=== PATIENT | male | born 1970 ===

== ENCOUNTER 2020-12-27 10:22 | Emergency (ER) | payer OTHER ==
[2020-12-27] MEDS ORDERED: Sodium Chloride 0.9% 10 ML Syringe FLUSH PRN (10:28)
--- NOTE | 2020-12-27 10:29 | EDM.PDOC ---
ED HPI GENERAL MEDICAL PROBLEM - General Chief Complaint: Neuro Symptoms/Deficits Stated Complaint: syncope Time Seen by Provider: 12/27/20 10:29 Source of Information: Reports: Patient, EMS History Limitations: Reports: No Limitations - History of Present Illness INITIAL COMMENTS - FREE TEXT/NARRATIVE: patient presented to the ER with a c/o dizziness. He is from the [facility] home - reports that this happened to him several times in the past. underwent several cardiac workups - all negative no fever or chills reports drinking 3 glasses of whiskey yesterday. no h/o CAD no illicit drugs abuse. Denies any symptoms at the moment ED ROS GENERAL - Review of Systems Review Of Systems: See Below Constitutional: Reports: No Symptoms HEENT: Reports: No Symptoms Respiratory: Reports: No Symptoms Cardiovascular: Reports: No Symptoms GI/Abdominal: Reports: No Symptoms Skin: Reports: No Symptoms Neurological: Reports: Dizziness ED EXAM, NEURO - Physical Exam Exam: See Below Exam Limited By: No Limitations General Appearance: Alert, WD/WN, No Apparent Distress Eye Exam: Bilateral Eye: EOMI, PERRL Neck: Normal Inspection Respiratory/Chest: No Respiratory Distress Cardiovascular: Normal Peripheral Pulses GI/Abdominal: Normal Bowel Sounds Neurological: Alert, Normal Mood/Affect Psychiatric: Normal Affect #1 Interpretation EKG Date: 12/27/20 Rhythm: NSR Happy: Normal P-Wave: Present QRS: Normal ST-T: Normal QT: Normal Course - Orders/Labs/Meds Orders: Active Orders 24 hr Category Date Time Status EKG Documentation Completion [RC] ASDIRECTED Care 12/27/20 10:29 Active LORazepam [Ativan] Med 12/27/20 14:29 Once 1 mg PO ONETIME ONE Sodium Chloride 0.9% [Saline Flush] Med 12/27/20 10:28 Active 10 ml FLUSH ASDIRECTED PRN Saline Lock Insert [OM.PC] Routine Oth 12/27/20 10:28 Ordered EKG 12 Lead [EK] Routine Ther 12/27/20 10:28 Ordered Medication Orders Sodium Chloride (Sodium Chloride 0.9% 10 Ml Syringe) 10 ml FLUSH ASDIRECTED PRN PRN Reason: Keep Vein Open Labs: Laboratory Tests 12/27/20 12/27/20 Range/Units 10:45 10:45 WBC 5.4 (4.0-11.0) K/uL RBC 4.53 (4.50-6.50) M/uL Hgb 14.8 (13.0-18.0) g/dL Hct 43.1 (40.0-54.0) % MCV 95 (76-96) fL MCH 32.7 H (27.0-32.0) pg MCHC 34.3 (31.0-35.0) g/dL RDW 13.1 (11.0-16.0) % Plt Count 223 (150-400) K/uL MPV 8.6 (6.0-10.0) fL Sodium 134 L (136-145) mmol/L Potassium 3.9 (3.5-5.1) mmol/L Chloride 102 (98-107) mmol/L Carbon Dioxide 24.8 (21.0-32.0) mmol/L Anion Gap 11.1 (5.0-15.0) mmol/L BUN 6 L (8-26) mg/dL Creatinine 0.83 (0.70-1.30) mg/dL Est Cr Clr Drug Dosing TNP Estimated GFR (MDRD) > 60 (>60) MLS/MIN BUN/Creatinine Ratio 7.2 (6-25) Glucose 92 (74-100) mg/dL Calcium 8.4 L (8.5-10.1) mg/dL Phosphorus 2.5 (2.5-4.9) mg/dL Magnesium 1.9 (1.8-2.4) mg/dL Troponin I < 0.017 (0.000-0.060) ng/mL Meds: Medications Generic Name Dose Route Start Last Admin Trade Name Freq PRN Reason Stop Dose Admin Sodium Chloride 10 ml 12/27/20 10:28 Sodium Chloride 0.9% 10 Ml Syringe FLUSH ASDIRECTED PRN Keep Vein Open Discontinued Medications Generic Name Dose Route Start Last Admin Trade Name Freq PRN Reason Stop Dose Admin Al Hydroxide/Mg Hydroxide 30 ml 12/27/20 12:41 Gi Cocktail Oral Solution 30 Ml PO 12/27/20 12:42 ONETIME ONE Ondansetron HCl 4 mg 12/27/20 12:41 Ondansetron 4 Mg Tab.Dis PO 12/27/20 12:42 ONETIME ONE - Re-Assessments/Exams Free Text/Narrative Re-Assessment/Exam: vitals WNL EKG - NSR Labs including CBC, BMP and trop - WNL GI cocktail and Zofran were given for stomach upset - reports improvement in symptoms will d/c back - no changes in meds Departure - Departure Time of Disposition: 14:32 Disposition: Home, Self-Care 01 Condition: Good Clinical Impression: Palpitations - Discharge Information *PRESCRIPTION DRUG MONITORING PROGRAM REVIEWED*: Not Applicable *COPY OF PRESCRIPTION DRUG MONITORING REPORT IN PATIENT NAVEED: Not Applicable Forms: ED Department Discharge - Problem List & Annotations (1) Palpitations SNOMED Code(s): 43552383 Code(s): R00.2 - PALPITATIONS Status: Acute Priority: Low - Problem List Review Problem List Initiated/Reviewed/Updated: Yes - My Orders Last 24 Hours: My Active Orders 12/27/20 10:28 Sodium Chloride 0.9% [Saline Flush] 10 ml FLUSH ASDIRECTED PRN Saline Lock Insert [OM.PC] Routine EKG 12 Lead [EK] Routine 12/27/20 10:29 EKG Documentation Completion [RC] ASDIRECTED 12/27/20 14:29 LORazepam [Ativan] 1 mg PO ONETIME ONE - Assessment/Plan Last 24 Hours: My Active Orders 12/27/20 10:28 Sodium Chloride 0.9% [Saline Flush] 10 ml FLUSH ASDIRECTED PRN Saline Lock Insert [OM.PC] Routine EKG 12 Lead [EK] Routine 12/27/20 10:29 EKG Documentation Completion [RC] ASDIRECTED 12/27/20 14:29 LORazepam [Ativan] 1 mg PO ONETIME ONE Plan: - resume home meds as before - recommend to follow up with your PCP in 1-2 weeks - ask for a holter monitor - increase fluids intake
[2020-12-27] MEDS ORDERED: Ondansetron 4 MG Tab.DIS PO ONE (12:41)
[2020-12-27] MEDS ORDERED: GI Cocktail Oral Solution 30 ML PO ONE (12:41)
[2020-12-27] MEDS ORDERED: LORazepam 1 MG Tab PO ONE (14:29)
== END 2020-12-27 14:48 | disposition home or self-care (01) ==
LOC: LB.ED 10:22
DX: R00.2 Palpitations (principal)
CPT/HCPCS: 36415; 80048; 83735; 84100; 84484; 85027; 93005; 99284; A0425; A0429; A9270; 93010